=== PATIENT | male | born 1950 | race Caucasian/White ===

== ENCOUNTER 2017-10-20 09:02 | Day surgery (SDC) | payer OTHER ==
[~2017-10-20] VITALS: Ht 177.8 cm; Wt 75.9 kg
[2017-10-20 09:29] VITALS: BP 117/67; PULSE 69; RESP 20; TEMP 97.8; O2SAT 100
[2017-10-20] MEDS ORDERED: SODIUM CHLOR 0.9% 1000 ML IV SCH (09:30)
[2017-10-20] MEDS ORDERED: SODIUM CHLORIDE 2 ML FLUSH PRN IV FLUSH (09:30)
[2017-10-20 10:18] LABS: AUTOMATED NEUTROPHIL # 1.8 TH/MM3 (1.8-7.7); BASOPHIL % 0.5 % (0.0-2.0); EOSINOPHIL # 0.7 TH/MM3 (0-0.4); EOSINOPHIL % 17.9 % (0.0-4.0); HEMATOCRIT 30.2 % (39.0-51.0); HEMOGLOBIN 10.4 GM/DL (13.0-17.0); LYMPH % 19.7 % (9.0-44.0); LYMPHOCYTE # 0.7 TH/MM3 (1.0-4.8); MEAN CORPUSCULAR HEMOGLOBIN 30.3 PG (27.0-34.0); MEAN CORPUSCULAR HGB CONC 34.4 % (32.0-36.0); MEAN PLATELET VOLUME 7.6 FL (7.0-11.0); MONO % 13.8 % (0.0-8.0); MONOCYTE # 0.5 TH/MM3 (0-0.9); NEUT % 48.1 % (16.0-70.0); PLATELET COUNT 133 TH/MM3 (150-450); RED BLOOD COUNT 3.43 MIL/MM3 (4.50-5.90); RED CELL DISTRIBUTION WIDTH 17.2 % (11.6-17.2); WHITE BLOOD COUNT 3.8 TH/MM3 (4.0-11.0)
[2017-10-20 10:26] LABS: INTERNATIONAL NORMALIZED RATIO 1.2 RATIO; PROTHROMBIN TIME - PATIENT 11.8 SEC (9.8-11.6)
[2017-10-20] MEDS ORDERED: MIDAZOLAM HCL 2 MG/2 ML VIAL ONE (11:03)
[2017-10-20 12:00] VITALS: BP 91/53; PULSE 76; RESP 16; TEMP 97.8; O2SAT 96
[2017-10-20 12:15] VITALS: BP 99/59; PULSE 79; RESP 16; O2SAT 96
[2017-10-20 12:45] VITALS: BP 98/59; PULSE 79; RESP 16; O2SAT 96
--- NOTE | 2017-10-20 12:50 | RADRPT ---
EXAM DATE/TIME: 10/20/2017 11:06 [facility] COMPARISON: No previous studies available for comparison. INDICATIONS : Bone marrow biopsy SEDATION TIME: 20 minutes BIOPSY SITE: Right Iliac MEDICATION(S): 1.) 4 mg midazolam (Versed) IV 2.) 200 mcg fentanyl (Sublimaze) IV Vancomycin within 2 hrs of procedure, Ancef (or alternative) within 1 hr of procedure start. DEVICE(S): 1.) 11 gauge Bone marrow biopsy needle MEDICAL HISTORY : Melanoma SURGICAL HISTORY : Appendectomy. Tonsillectomy. Vasectomy, hernia repair ENCOUNTER: Initial ACUITY: 1 day PAIN SCORE: 0/10 LOCATION: Right pelvis A total of one large core specimen and multiple aspirates were obtained and sent to the laboratory fo r pathologic evaluation. PROCEDURE: 1. CT guided bone marrow biopsy. 2. Conscious sedation with continuous EKG and oximetry monitoring. 3. EKG and oximetry remained stable throughout the procedure. Prior to the procedure informed consent was obtained. Any appropriate prior imaging studies were rev iewed. Using automated exposure control and adjustment of the mA and/or kV according to patient size , radiation dose was kept as low as reasonably achievable to obtain optimal diagnostic quality images . DICOM format image data is available electronically for review and comparison. The site was prepped in a sterile fashion. Full sterile technique was used, including cap, mask, julia rile gloves and gown and a large sterile sheet. Hand hygiene and 2% chlorhexidine and/or betadine/al cohol prep was utilized per protocol for cutaneous antisepsis. The skin and subcutaneous tissues wer e infiltrated with local anesthetic solution. With CT guidance the previously identified target was localized. Biopsy was performed using the presc ribed needle as above. Following biopsy marrow aspiration was performed with repeat puncture. Adequa te hemostasis was obtained with compression at the puncture site. Follow-up CT scan reveals no hemorrhage. Conscious sedation was performed with the prescribed dosages and duration as above in the presence of an independent trained radiology nurse to assist in the monitoring of the patient. EKG and oximetry remained stable throughout the procedure. The patient tolerated the procedure well and there were no complications. The patient was sent to Radiology Outpatient Unit in stable condition. CONCLUSION: 1. Uncomplicated CT guided bone marrow aspirate. 2. Uncomplicated CT guided bone marrow biopsy. Reg Ramos MD on October 20, 2017 at 12:47 Board Certified Radiologist. This report was verified electronically.
[2017-10-20 13:15] VITALS: BP 101/61; PULSE 81; RESP 18; O2SAT 97
[2017-10-20] MEDS ORDERED: SODIUM CHLORIDE 2 ML FLUSH BID IV FLUSH SCH (21:00)
== END 2017-10-20 13:58 | disposition home or self-care (01) ==
LOC: HRAD 09:02 → HRIP 09:05 → HRAD 13:58
PROVIDERS: ATTEND Internal Medicine Hematology & Oncology
DX: R59.0 Localized enlarged lymph nodes (principal); Z85.820 Personal history of malignant melanoma of skin; D64.9 Anemia, unspecified; C85.94 Non-Hodgkin lymphoma, unspecified, lymph nodes of axilla and upper limb
CPT/HCPCS: 38222; 77012; 85025; 85097; 85610; 85730; 88184; 88185; 88237; 88264; 88280; 88305; 88311; 88313; 99152; 99153; C1830; J2250; J3010; J7030; 88341; 88342

== ENCOUNTER → 2017-11-06 | Day surgery (SDC) | payer OTHER ==
[~2017-11-06] VITALS: Ht 177.8 cm; Wt 75.9 kg
[~2017-11-06] MED LIST: ACETAMINOPHEN 1000 MG/100 ML 100 ML IV SCH; ACETAMINOPHEN/HYDROcodone 325 MG/5 MG TAB PO PRN; ALLO300T2 PO; CHLORHEXIDINE GLUCONATE 2 % 1 PACK (2 CLOTHS) TOPICAL PRN; DEXAMETHASONE SOD PHOS 4 MG/ML VIAL IV ONE; HEPARIN SODIUM - IV 10,000 UNITS/10 ML VIAL ONE; INSULIN HUMAN REGULAR 1,000 UNITS/10 ML VIAL SQ PRN; LACTATED RINGER'S 1000 ML IV PRN; LIDOCAINE HCL 1% 50 ML VIAL ONE; LIDOCAINE HCL 1% PF 5 ML SYRINGE OTHER ONE; METOPROLOL TARTRATE 25 MG TAB PO PRN; MIDAZOLAM HCL 2 MG/2 ML VIAL ONE; MORPHINE SULFATE 2 MG/ML INJ IV PUSH PRN; NORC5TAB PO; ONDANSETRON HCL 4 MG/2 ML VIAL IV ONE; ONDANSETRON HCL 4 MG/2 ML VIAL IV PUSH PRN; PHENYLEPH/NS 1000 MCG/10 ML SYR IV ONE; POVIDONE IODINE 5% (ANTISEPSIS KIT) 4 APPLICATIONS EACH NARE PRN; PROPOFOL 200 MG/20 ML AMP IV ONE; SODIUM BICARBONATE 8.4% INJ 50 ML ONE; SODIUM CHLORID 0.9% 500 ML IV PRN; SODIUM CHLORIDE 0.9% 20 ML VIAL ONE; VANCOMYCIN 1 GM/200 ML PREMIX IV SCH; ceFAZolin 1,000 MG/NS 100 ML IV SCH; ceFAZolin INJ 1,000 MG VIAL ONE
[2017-11-06 10:05] LABS: AUTOMATED NEUTROPHIL # 1.7 TH/MM3 (1.8-7.7); EOSINOPHIL # 0.7 TH/MM3 (0-0.4); EOSINOPHIL % 17.6 % (0.0-4.0); HEMATOCRIT 32.8 % (39.0-51.0); HEMOGLOBIN 11.1 GM/DL (13.0-17.0); LYMPH % 24.7 % (9.0-44.0); MEAN CELL VOLUME 87.7 FL (80.0-100.0); MEAN CORPUSCULAR HEMOGLOBIN 29.6 PG (27.0-34.0); MEAN CORPUSCULAR HGB CONC 33.8 % (32.0-36.0); MEAN PLATELET VOLUME 7.4 FL (7.0-11.0); MONO % 14.3 % (0.0-8.0); MONOCYTE # 0.6 TH/MM3 (0-0.9); NEUT % 42.4 % (16.0-70.0); PLATELET COUNT 126 TH/MM3 (150-450); RED BLOOD COUNT 3.73 MIL/MM3 (4.50-5.90); RED CELL DISTRIBUTION WIDTH 16.7 % (11.6-17.2); WHITE BLOOD COUNT 3.9 TH/MM3 (4.0-11.0)
[2017-11-06 10:24] LABS: CALCIUM 8.8 MG/DL (8.5-10.1); CREATININE 1.09 MG/DL (0.60-1.30)
--- NOTE | 2017-11-06 12:22 | EKG ---
Date Performed: 11/06/2017 Time Performed: 09:41:05 PTAGE: 67 years EKG: Sinus rhythm NORMAL ECG NO PREVIOUS TRACING 11/06/2017 0941 DOCTOR: Magdaleno James Interpretating Date/Time 11/06/2017 12:20:59
--- NOTE | 2017-11-06 12:51 | RADRPT ---
EXAM DATE/TIME: 11/06/2017 12:30 [facility] COMPARISON: No previous studies available for comparison. INDICATIONS : Post-op infusa port, evaluate for pneumothorax. MEDICAL HISTORY : Melanoma SURGICAL HISTORY : Appendectomy. Tonsillectomy. Vasectomy, hernia repair ENCOUNTER: Initial ACUITY: 1 day PAIN SCORE: Non-responsive. LOCATION: Bilateral chest FINDINGS: A single view of the chest demonstrates the lungs to be symmetrically aerated without evidence of mas s, infiltrate or effusion. The cardiomediastinal contours are unremarkable. Osseous structures are intact. Left subclavian Bvptze-b-Utst catheter with tip projecting over the central venous system. CONCLUSION: No acute cardiopulmonary process. Kiel Johnson MD on November 06, 2017 at 12:45 Board Certified Radiologist. This report was verified electronically.
[2017-11-06 14:13] VITALS: BP 104/62; PULSE 72; RESP 18; TEMP 97.8; O2SAT 97
--- NOTE | 2017-11-06 15:43 | MP ---
cc: Monster Christine MD,Jae Herrera,Rajiv Nesbitt DATE OF OPERATION: 11/06/2017 DATE OF PROCEDURE: 11/06/2017 PROCEDURE: [id number] placement with intraoperative use of fluoroscopy. PREOPERATIVE DIAGNOSIS: B-cell lymphoma with need for IV chemotherapy. POSTOPERATIVE DIAGNOSIS: B-cell lymphoma with need for IV chemotherapy. ANESTHESIA: LMA SURGEON: Dr. Christine ESTIMATED BLOOD LOSS: 10 mL FLUIDS 850 mL Crystalloid COMPLICATIONS: None DRAINS: None SPECIMEN: None PROCEDURE IN DETAIL: The patient was taken to the operating room and placed on the operating table in the supine position. After an adequate level of laryngeal mask anesthesia was instituted the neck and chest were shaved, prepped and draped. Timeout was taken confirming the correct patient, site, and procedure to be performed. The skin and subcutaneous tissue was infiltrated with local anesthetic and the patient placed in slight Trendelenburg position. He was accessed in the left subclavian vein on the first attempt and guidewire was passed and seen under fluoroscopy to course into the superior vena cava. A port pocket was then created inferior to this after infiltrating the skin with local anesthetic. The pocket was incised sharply and then the pocket created with electrocautery. When this was completed the catheter was brought through a short tunnel and the introducer and sheath then passed over the guidewire. The guidewire and introducer were removed and the catheter passed down the sheath. The sheath was peeled away and the tip was seen to be in the superior vena cava. The catheter was trimmed to length and the port attached and the hub slipped over it. The catheter was seen to be slightly short and good blood return was not achieved. At this point the port was unattached from the catheter and a guidewire slipped back over the catheter. The catheter was taken out and a longer piece of the same catheter was utilized and slipped back over the guidewire. This was seen to be in the superior vena cava. The guidewire was removed and the catheter reattached to the port with the hub snapped in place. The port was reaccessed and good blood return was achieved with ease. The catheter was re-flushed with 5 mL of 100 units per mL heparinized saline. The port was fixed into place with two 2-0 Prolene sutures. The port pocket was seen to be clean and dry and it was then closed with interrupted 3-0 Vicryl suture as was the percutaneous puncture site. The skin was closed with 5-0 PDS in a running subcuticular fashion. The wounds were dressed with Steri-Strips. The patient was extubated and taken back to the recovery room in stable condition. Portable chest x-ray is pending at the time of this dictation. MD DARÍO Kumar/TL/rr , 12:19 PM , 02:07 PM
== END | disposition home or self-care (01) ==
LOC: HSDC 08:57
PROVIDERS: ATTEND Surgery Trauma Surgery
DX: C85.10 Unspecified B-cell lymphoma, unspecified site (principal); Z01.810 Encounter for preprocedural cardiovascular examination; Z01.818 Encounter for other preprocedural examination
CPT/HCPCS: 00532; 36561; 71045; 77001; 80048; 85025; 93005; C1788; J0131; J0690; J1100; J1644; J2250; J2370; J2405; J3010; J3370; J7120